=== PATIENT | female | born 1990 | race African-American/Black ===

== ENCOUNTER 2020-05-14 22:08 | Emergency (ER) | payer OTHER ==
[2020-05-14] MEDS ORDERED: Acetaminophen 500 MG TAB ONE (23:57)
== END 2020-05-15 02:18 | disposition home or self-care (01) ==
LOC: CSHERS 22:08
DX: S16.1XXA Strain of muscle, fascia and tendon at neck level, initial encounter (principal); S00.03XA Contusion of scalp, initial encounter; F17.210 Nicotine dependence, cigarettes, uncomplicated; V89.2XXA Person injured in unspecified motor-vehicle accident, traffic, initial encounter
CPT/HCPCS: 70450; 72125

== ENCOUNTER 2022-02-24 03:04 | Emergency (ER) | payer OTHER, SELFPAY ==
[2022-02-24] MEDS ORDERED: Ketorolac Tromethamine 30 MG/ML VIAL ONE (03:29)
[2022-02-24] MEDS ORDERED: Morphine 4 MG/ML VIAL ONE (03:29)
== END 2022-02-24 06:36 | disposition home or self-care (01) ==
LOC: CSHERS 03:04
DX: S83.92XA Sprain of unspecified site of left knee, initial encounter (principal); F17.210 Nicotine dependence, cigarettes, uncomplicated; W01.0XXA Fall on same level from slipping, tripping and stumbling without subsequent striking against object, initial encounter
CPT/HCPCS: 96372; J1885; J2270

== ENCOUNTER 2022-02-28 17:59 | Emergency (ER) | payer SELFPAY | END 2022-02-28 20:02 | disposition home or self-care (01) | LOC: CSHERS 17:59 | DX: M23.92 Unspecified internal derangement of left knee (principal); F17.210 Nicotine dependence, cigarettes, uncomplicated; W10.9XXA Fall (on) (from) unspecified stairs and steps, initial encounter | CPT/HCPCS: 99283 ==